=== PATIENT | male | born 1940 | race Caucasian/White ===

== ENCOUNTER → 2016-08-02 | Outpatient (CLI) | payer MEDICARE, BC ==
--- NOTE | 2016-08-02 12:24 | CT ---
EXAMINATION TYPE: CT chest wo con DATE OF EXAM: 08/02/2016 COMPARISON: Previous CT scan of the chest, abdomen and pelvis dated 11/12/2015 and a previous PET/CT d ated 12/20/2015. HISTORY: Shortness of breath, lobectomy and COPD CT DLP: 578 mGycm Automated exposure control for dose reduction was used. FINDINGS: There has been an interval right upper lobectomy. There are scattered granulomas within the left lung. No noncalcified nodules are seen. There are no suspicious axillary, mediastinal or hilar lymph nodes. There is no pleural or pericardial fluid. The heart is not enlarged. There are coronary artery calcifications. There is a small hiatal hernia. There is a stable 2.6 cm exophytic lesion arising in the lower pole of the right kidney and a stable 2.3 cm lesion in the anterior lower pole of the left kidney. These presumably represent cysts. Visual ized portions of the upper abdomen are otherwise unremarkable. There is hypertrophic spondylosis within the spine. No bony destructive lesion is seen. IMPRESSION: 1. POSTSURGICAL CHANGE. 2. NO EVIDENCE OF RECURRENT OR METASTATIC NEOPLASM. 3. SMALL HIATAL HERNIA. 4. BILATERAL RENAL LESIONS, LIKELY REPRESENTING CYSTS. THIS COULD BE CONFIRMED WITH ULTRASOUND. 5. DEGENERATIVE CHANGES WITHIN THE SPINE.
== END | disposition home or self-care (01) ==
LOC: RADCTMAIN 11:51
PROVIDERS: ATTEND Internal Medicine
DX: R06.02 Shortness of breath (principal); R05 Cough; Z98.84 Bariatric surgery status
CPT/HCPCS: 71250

== ENCOUNTER → 2016-12-06 | Outpatient (CLI) | payer MEDICARE, BC ==
--- NOTE | 2016-12-06 08:44 | CT ---
EXAMINATION TYPE: CT ChestAbdPelvis wo con DATE OF EXAM: 12/06/2016 COMPARISON: CT chest 08/02/2016, CT chest abdomen pelvis 11/12/2015 HISTORY: Prostate cancer CT DLP: 1298 mGycm. Automated Exposure Control for Dose Reduction was Utilized. TECHNIQUE: CT scan of the thorax, abdomen and pelvis is performed without IV contrast. FINDINGS: Lack of intravenous contrast could compromise sensitivity. LUNGS: The lungs are grossly clear, there is no concerning parenchymal mass or nodule identified. In flammatory and postop changes show similar appearance to prior exam within the right lung. There is n o pleural effusion or pneumothorax seen. The tracheobronchial tree is patent. Calcified pleural plaq ue left upper lobe is stable. MEDIASTINUM: There are no greater than 1 cm hilar or mediastinal lymph nodes. No pericardial effusi on is seen. There are coronary artery calcifications present. OTHER: No additional significant abnormality is seen. LIVER/GB: No significant abnormality is appreciated. PANCREAS: No significant abnormality is seen. SPLEEN: No significant abnormality is seen. ADRENALS: No significant abnormality is seen. KIDNEYS: No significant interval change, cystic foci are associated with the kidneys. BOWEL: No sign ificant abnormality is seen. GENITAL ORGANS: No gross abnormality seen. Right inguinal hernia contains fat. LYMPH NODES: No greater than 1cm abdominal or pelvic lymph nodes are appreciated. OSSEOUS STRUCTURES: Degenerative disc changes present in the visualized spine. OTHER: Abdominal aorta measures approximately 3.8 cm in greatest dimension proximal to the bifurcatio n. Atheromatous changes are present within the abdominal aorta. IMPRESSION: Postop changes. Noncontrast exam. Abdominal aortic aneurysm is stable. Additional finding s above.
== END | disposition home or self-care (01) ==
LOC: RADCTMAIN 07:20
PROVIDERS: ATTEND Family Medicine
DX: Z08 Encounter for follow-up examination after completed treatment for malignant neoplasm (principal); I71.4 Abdominal aortic aneurysm, without rupture; Z85.46 Personal history of malignant neoplasm of prostate; Z98.890 Other specified postprocedural states
CPT/HCPCS: 71250; 74176

== ENCOUNTER → 2017-02-15 | Outpatient (CLI) | payer MEDICARE, BC ==
[~2017-02-15] MED LIST: DENOSUMAB 60 MG/ML 1 ML SYRINGE SQ ONE
[2017-02-15 10:07] VITALS: BP 118/58; PULSE 69; RESP 16; TEMP 97.9
== END | disposition home or self-care (01) ==
LOC: PROCWHC3 09:13
PROVIDERS: ATTEND Family Medicine
DX: M81.0 Age-related osteoporosis without current pathological fracture (principal); Z85.46 Personal history of malignant neoplasm of prostate
CPT/HCPCS: 96372; J0897

== ENCOUNTER 2019-03-19 12:18 | Emergency (ER) | payer MEDICARE ==
[2019-03-19] MEDS ORDERED: SODIUM CHLORIDE 0.9% 500 ML 500 ML IV STA (12:58)
--- NOTE | 2019-03-19 13:02 | ED ---
General Adult HPI - General Chief complaint: Shortness of Breath Stated complaint: SOB, Tachycardia Source: patient, RN notes reviewed, old records reviewed Mode of arrival: ambulatory Limitations: no limitations - History of Present Illness Initial comments: This is an 78-year-old male who presents to the emergency department complaining of shortness of breath. Patient states been ongoing a week. Patient states he has had a cough with increased sputum production. Patient denies any chest pain or palpitations. Patient denies any fever chills. Patient states he has a we ight loss of about 14 pounds over the last 6 months or so. Patient states that could be because his and she was still cooked. Patient states he does not do much cocaine he does not eat enough. Patient denies any abdominal pain patient denies nausea vomiting diarrhea. Patient denies any lightheadedness dizziness. Patient denies any numbness or weakness. Patient denies any swelling to the legs or calf tenderness. - Related Data Home Medications Medication Instructions Recorded Confirmed Atorvastatin [Lipitor] 20 mg PO DAILY 06/04/15 02/15/17 Multivitamins, Thera [Multivitamin] 1 tab PO DAILY 06/04/15 02/15/17 Potassium Chloride ER [K-Dur 20] 20 mg PO DAILY 06/04/15 02/15/17 Bicalutamide [Casodex] 50 mg PO DAILY 06/09/15 02/15/17 Calcium Carbonate [Calcium] 600 mg PO DAILY 02/15/17 02/15/17 Escitalopram [Lexapro] 10 mg PO DAILY 02/15/17 02/15/17 Lisinopril [Zestril] 2.5 mg PO DAILY 02/15/17 02/15/17 Previous Rx's Medication Instructions Recorded Albuterol Inhaler [Ventolin Hfa 1 - 2 puff INHALATION Q6HR PRN #2 03/19/19 Inhaler] puff Azithromycin [Zithromax Tri-Neno] 500 mg PO DAILY #3 tab 03/19/19 Allergies Allergy/AdvReac Type Severity Reaction Status Date / Time No Known Allergies Allergy Verified 03/19/19 12:43 Review of Systems ROS Statement: Those systems with pertinent positive or pertinent negative responses have been documented in the HPI. ROS Other: All systems not noted in ROS Statement are negative. Past Medical History Past Medical History: Cancer, COPD, Diabetes Mellitus, Hyperlipidemia, Prostate Disorder, Skin Disorder Additional Past Medical History / Comment(s): Prostate cancer, bladder cancer History of Any Multi-Drug Resistant Organisms: None Reported Past Surgical History: Appendectomy Additional Past Surgical History / Comment(s): skin biopsy, appendicitis, lower back surgery, bladder tumor removed, Had radiation for prostate CA Past Anesthesia/Blood Transfusion Reactions: Previous Problems w/ Anesthesia Additional Past Anesthesia/Blood Transfusion Reaction / Comment(s): post anesthesia blood pressure drop. No blood transfusions. Past Psychological History: Anxiety Smoking Status: Former smoker Past Alcohol Use History: None Reported Past Drug Use History: None Reported - Past Family History Father Family Medical History: Congestive Heart Failure (CHF) General Exam - General Exam Comments Initial Comments: GENERAL: Patient is well-developed and well-nourished. Patient is nontoxic and well- hydrated and is in no acute distress. ENT: Neck is soft and supple. No significant lymphadenopathy is noted. Oropharynx is clear. Moist mucous membranes. Neck has full range of motion without eliciting any pain. EYES: The sclera were anicteric and conjunctiva were pink and moist. Extraocular movements were intact and pupils were equal round and reactive to light. Eyelids were unremarkable. PULMONARY: Unlabored respirations. Good breath sounds bilaterally. No audible rales rhonchi or wheezing was noted. CARDIOVASCULAR: There is a regular rate and rhythm without any murmurs gallops or rubs. ABDOMEN: Soft and nontender with normal bowel sounds. No palpable organomegaly was noted. There is no palpable pulsatile mass. SKIN: Skin is clear with no lesions or rashes and otherwise unremarkable. NEUROLOGIC: Patient is alert and oriented x3. Cranial nerves II through XII are grossly intact. Motor and sensory are also intact. Normal speech, volume and content. Symmetrical smile. MUSCULOSKELETAL: Normal extremities with adequate strength and full range of motion. No lower extremity swelling or edema. No calf tenderness. LYMPHATICS: No significant lymphadenopathy is noted PSYCHIATRIC: Normal psychiatric evaluation. Limitations: no limitations Course Vital Signs 03/19/19 03/19/19 12:41 13:06 Temperature 97.8 F Pulse Rate 104 H Respiratory 18 18 Rate Blood Pressure 135/82 O2 Sat by Pulse 96 Oximetry Medical Decision Making - Medical Decision Making EKG shows a sinus rhythm with occasional PVC at 96 bpm NV interval 284 QRS is un maria e 22 QT interval 380 QTC is 490. Patient's EKG shows no ST segment elevation or depression. Chest x-ray showed no acute normalities. CT of the chest showed no PE in no acute abnormality. I will back and he spoke with the patient he stated he felt much improved. I told the patient we will be sending him home with albuterol and a steroid just to be sure since his symptoms been so prolonged. Patient states to follow-up with his primary medical care doctor and return here if there are any new or worsening symptoms - Lab Data Result diagrams: 03/19/19 12:45 03/19/19 12:45 Lab Results 03/19/19 03/19/19 03/19/19 Range/Units 12:45 12:45 12:45 WBC 10.0 (3.8-10.6) k/uL RBC 4.34 (4.30-5.90) m/uL Hgb 13.4 (13.0-17.5) gm/dL Hct 38.4 L (39.0-53.0) % MCV 88.3 (80.0-100.0) fL MCH 30.8 (25.0-35.0) pg MCHC 34.8 (31.0-37.0) g/dL RDW 12.5 (11.5-15.5) % Plt Count 297 (150-450) k/uL Neutrophils % 70 % Lymphocytes % 16 % Monocytes % 8 % Eosinophils % 4 % Basophils % 1 % Neutrophils # 7.0 (1.3-7.7) k/uL Lymphocytes # 1.6 (1.0-4.8) k/uL Monocytes # 0.8 (0-1.0) k/uL Eosinophils # 0.4 (0-0.7) k/uL Basophils # 0.1 (0-0.2) k/uL PT 10.4 (9.0-12.0) sec INR 1.0 (<1.2) APTT 21.0 L (22.0-30.0) sec D-Dimer 1.29 H (<0.60) mg/L FEU Sodium 139 (137-145) mmol/L Potassium 4.2 (3.5-5.1) mmol/L Chloride 105 (98-107) mmol/L Carbon Dioxide 25 (22-30) mmol/L Anion Gap 9 mmol/L BUN 25 H (9-20) mg/dL Creatinine 1.05 (0.66-1.25) mg/dL Est GFR (CKD-EPI)AfAm 78 (>60 ml/min/1.73 sqM) Est GFR (CKD-EPI)NonAf 67 (>60 ml/min/1.73 sqM) Glucose 143 H (74-99) mg/dL Plasma Lactic Acid Salvador (0.7-2.0) mmol/L Calcium 9.8 (8.4-10.2) mg/dL Magnesium 1.8 (1.6-2.3) mg/dL Total Bilirubin 0.8 (0.2-1.3) mg/dL AST 25 (17-59) U/L ALT 16 (4-49) U/L Alkaline Phosphatase 118 (38-126) U/L Troponin I (0.000-0.034) ng/mL NT-Pro-B Natriuret Pep pg/mL Total Protein 7.2 (6.3-8.2) g/dL Albumin 4.4 (3.5-5.0) g/dL 03/19/19 03/19/19 03/19/19 Range/Units 12:45 12:45 12:45 WBC (3.8-10.6) k/uL RBC (4.30-5.90) m/uL Hgb (13.0-17.5) gm/dL Hct (39.0-53.0) % MCV (80.0-100.0) fL MCH (25.0-35.0) pg MCHC (31.0-37.0) g/dL RDW (11.5-15.5) % Plt Count (150-450) k/uL Neutrophils % % Lymphocytes % % Monocytes % % Eosinophils % % Basophils % % Neutrophils # (1.3-7.7) k/uL Lymphocytes # (1.0-4.8) k/uL Monocytes # (0-1.0) k/uL Eosinophils # (0-0.7) k/uL Basophils # (0-0.2) k/uL PT (9.0-12.0) sec INR (<1.2) APTT (22.0-30.0) sec D-Dimer (<0.60) mg/L FEU Sodium (137-145) mmol/L Potassium (3.5-5.1) mmol/L Chloride (98-107) mmol/L Carbon Dioxide (22-30) mmol/L Anion Gap mmol/L BUN (9-20) mg/dL Creatinine (0.66-1.25) mg/dL Est GFR (CKD-EPI)AfAm (>60 ml/min/1.73 sqM) Est GFR (CKD-EPI)NonAf (>60 ml/min/1.73 sqM) Glucose (74-99) mg/dL Plasma Lactic Acid Salvador 1.5 (0.7-2.0) mmol/L Calcium (8.4-10.2) mg/dL Magnesium (1.6-2.3) mg/dL Total Bilirubin (0.2-1.3) mg/dL AST (17-59) U/L ALT (4-49) U/L Alkaline Phosphatase (38-126) U/L Troponin I <0.012 (0.000-0.034) ng/mL NT-Pro-B Natriuret Pep 172 pg/mL Total Protein (6.3-8.2) g/dL Albumin (3.5-5.0) g/dL Disposition Clinical Impression: Bronchitis, acute Disposition: HOME SELF-CARE Instructions (If sedation given, give patient instructions): Acute Bronchitis (ED) Prescriptions: Albuterol Inhaler [Ventolin Hfa Inhaler] 1 - 2 puff INHALATION Q6HR PRN #2 puff PRN Reason: Difficulty breathing Azithromycin [Zithromax Tri-Neno] 500 mg PO DAILY #3 tab Is patient prescribed a controlled substance at d/c from ED?: No Referrals: Lisa Dodd DO [Primary Care Provider] - 1-2 days
[2019-03-19 13:20] LABS: Albumin 4.4 g/dL (3.5-5.0); Calcium 9.8 mg/dL (8.4-10.2); Magnesium 1.8 mg/dL (1.6-2.3); Potassium 4.2 mmol/L (3.5-5.1); Total Bilirubin 0.8 mg/dL (0.2-1.3); Total Protein 7.2 g/dL (6.3-8.2)
[2019-03-19 13:37] LABS: Basophils # (A) 0.1 k/uL (0-0.2); Basophils % (A) 1 %; Eosinophils # (A) 0.4 k/uL (0-0.7); Eosinophils % (A) 4 %; HCT 38.4 % (39.0-53.0); HGB 13.4 gm/dL (13.0-17.5); Lymphocytes # (A) 1.6 k/uL (1.0-4.8); Lymphocytes % (A) 16 %; MCH 30.8 pg (25.0-35.0); MCHC 34.8 g/dL (31.0-37.0); MCV 88.3 fL (80.0-100.0); Mean Platelet Volume 7.2; Monocytes # (A) 0.8 k/uL (0-1.0); Monocytes % (A) 8 %; Neutrophils % (A) 70 %; Platelet Count 297 k/uL (150-450); RBC 4.34 m/uL (4.30-5.90); RDW 12.5 % (11.5-15.5)
[2019-03-19 13:40] LABS: Prothrombin Time 10.4 sec (9.0-12.0)
[2019-03-19 13:46] LABS: D-Dimer 1.29 mg/L FEU (<0.60)
--- NOTE | 2019-03-19 14:11 | XR ---
EXAMINATION TYPE: XR chest 2V DATE OF EXAM: 03/19/2019 COMPARISON: CT December 06, 2016 HISTORY: Shortness of breath and tachycardia. TECHNIQUE: Frontal and lateral views of the chest are obtained. FINDINGS: There is chronic parenchymal change bilaterally without suspicious focal air space opacity , pleural effusion, or pneumothorax seen. The cardiac silhouette size is upper limits of normal. T he osseous structures remain demineralized. IMPRESSION: Chronic changes without acute pulmonary process.
--- NOTE | 2019-03-19 15:42 | CT ---
EXAMINATION TYPE: CT chest angio for PE DATE OF EXAM: 03/19/2019 COMPARISON: CT December 06, 2016 HISTORY: SOB, Tachycardia CT DLP: 299.5 mGycm. Automated Exposure Control for Dose Reduction was Utilized. CONTRAST: CTA scan of the thorax is performed without and with IV Contrast, patient injected with 100 ml mL of Isovue 370, pulmonary embolism protocol. MIP Images are created on CT scanner and reviewed. FINDINGS: LUNGS: Background moderate underlying emphysematous change with mild/moderate parenchymal fibrosis la teral right lung base redemonstrated. No suspicious new focal consolidation or groundglass opacity. N o pleural effusion or pneumothorax is seen bilaterally. Some right-sided volume loss with slightly el evated right hemidiaphragm again seen. MEDIASTINUM: There is satisfactory enhancement of the pulmonary artery and its branches, there is no CT evidence for pulmonary embolism. There are no new greater than 1 cm hilar or mediastinal lymph n odes. No cardiomegaly or pericardial effusion is seen. Coronary artery calcification is again seen which is noted marker for underlying coronary artery disease. OTHER: Asymmetric right-sided gynecomastia axial image 6 redemonstrated. Multilevel spurring in the s pine again seen. IMPRESSION: 1. No CT evidence for acute pulmonary embolism. Moderate emphysematous and mild to moderate parenchym al fibrotic changes without new suspicious acute pulmonary process.
[2019-03-19 16:29] VITALS: BP 133/76; PULSE 77; RESP 16; TEMP 98.1
== END 2019-03-19 16:43 | disposition home or self-care (01) ==
LOC: EC 12:18
DX: J20.9 Acute bronchitis, unspecified (principal); J44.0 Chronic obstructive pulmonary disease with (acute) lower respiratory infection; I49.3 Ventricular premature depolarization; E11.9 Type 2 diabetes mellitus without complications; E78.5 Hyperlipidemia, unspecified; F41.9 Anxiety disorder, unspecified; Z79.899 Other long term (current) drug therapy; Z87.891 Personal history of nicotine dependence; Z85.46 Personal history of malignant neoplasm of prostate
CPT/HCPCS: 99285; 36415; 93005; 85379; 83880; 80053; 83605; 83735; 84484; 85025; 85610; 85730; 87040; 71046; 71275; Q9967

== ENCOUNTER → 2020-04-03 | Outpatient (CLI) | payer MEDICARE ==
--- NOTE | 2020-04-03 17:04 | CT ---
EXAMINATION TYPE: CT angio chest DATE OF EXAM: 04/03/2020 COMPARISON: 03/19/2019 HISTORY: CT DLP: mGycm Automated exposure control for dose reduction was used. CONTRAST: Performed , patient injected with mL of . The contrast was Isovue 162 mL. There are 3-D post processed images. Images obtained from the thoracic inlet to the diaphragm with IV contrast. There is some patchy reticular density in both lung malave consistent with mild scarring and subsegme ntal atelectasis. There is no suspicious pulmonary mass. There is some mild pleural thickening and ca lcification in the medial aspect right upper lobe. There are no hilar masses. There is no mediastinal adenopathy. Thoracic aorta appears intact. There is no aneurysm or dissection. The ascending aorta m easures 3.3 cm. There is normal contrast opacification of the pulmonary arteries. There are no filling defects. There is some spurring in the thoracic spine. There is no compression fracture. Upper abdominal soft tissues are intact. There are multiple bilateral renal cortical cysts that measure up to 3.2 cm. IMPRESSION: No evidence of pulmonary embolism. Patchy scarring and subsegmental atelectasis in both lungs. There is some pleural calcification and t hickening medial aspect right upper lobe that is improved compared to old exam. No suspicious pulmona ry mass.
--- NOTE | 2020-04-03 17:10 | CT ---
EXAMINATION TYPE: CT angio chest This duplicate report for the exam performed with 2 different accession numbers. DATE OF EXAM: 04/03/2020 COMPARISON: 03/19/2019 HISTORY: CT DLP: mGycm Automated exposure control for dose reduction was used. CONTRAST: Performed , patient injected with mL of . The contrast was Isovue 162 mL. There are 3-D post processed images. Images obtained from the thoracic inlet to the diaphragm with IV contrast. There is some patchy reticular density in both lung malave consistent with mild scarring and subsegme ntal atelectasis. There is no suspicious pulmonary mass. There is some mild pleural thickening and ca lcification in the medial aspect right upper lobe. There are no hilar masses. There is no mediastinal adenopathy. Thoracic aorta appears intact. There is no aneurysm or dissection. The ascending aorta m easures 3.3 cm. There is normal contrast opacification of the pulmonary arteries. There are no filling defects. There is some spurring in the thoracic spine. There is no compression fracture. Upper abdominal soft tissues are intact. There are multiple bilateral renal cortical cysts that measure up to 3.2 cm. IMPRESSION: No evidence of pulmonary embolism. Patchy scarring and subsegmental atelectasis in both lungs. There is some pleural calcification and t hickening medial aspect right upper lobe that is improved compared to old exam. No suspicious pulmona ry mass.
== END | disposition home or self-care (01) ==
LOC: RADCTMAIN 15:07
PROVIDERS: ATTEND Family Medicine
DX: J98.11 Atelectasis (principal); J98.4 Other disorders of lung; R09.02 Hypoxemia; R00.0 Tachycardia, unspecified; Z86.16 Personal history of COVID-19
CPT/HCPCS: 82565; 84520; 71275; 36415; Q9967

== ENCOUNTER → 2021-06-15 | Outpatient (CLI) | payer MEDICARE ==
--- NOTE | 2021-06-15 13:15 | CT ---
EXAMINATION TYPE: CT abdomen pelvis w con DATE OF EXAM: 06/15/2021 COMPARISON: CT dated 12/06/2016 HISTORY: Prostate cancer CT DLP: 456.0 mGycm Automated exposure control for dose reduction was used. TECHNIQUE: Helical acquisition of images was performed from the lung bases through the pelvis. CONTRAST: Performed without Oral Contrast and with IV Contrast, patient injected with 80 mL of Isovue 300. FINDINGS: LUNG BASES: Mild right basal pulmonary fibrotic changes. Cardiomegaly and coronary arterial atheroscl erotic calcifications. LIVER/GB: No definite hepatic focal lesion. Suspected adenomyomatosis at the gallbladder fundus, for correlation with ultrasound results. PANCREAS: Atrophic with fatty infiltration. SPLEEN: Minimal subcapsular fluid. No splenic focal lesion. ADRENALS: No significant abnormality is seen. KIDNEYS: Multiple variable sized bilateral renal cysts without gross suspicious features, otherwise u nremarkable kidneys. FREE AIR: No free air is visualized. RETROPERITONEAL ADENOPATHY: No pathologically enlarged retroperitoneal lymph nodes. REPRODUCTIVE ORGANS: No prostatic enlargement. URINARY BLADDER: Nondistended and suboptimally assessed. PELVIC ADENOPATHY: No pathologically enlarged lymph nodes. OSSEOUS STRUCTURES: Tiny sclerotic foci at the posterior aspects of the iliac bones, slightly more p rominent compared to the previous CT scan on the right side, nonspecific. Recommend correlation with bone scan results. Diffuse osteopenia. Anterolisthesis of L3 over L4 with retrolisthesis of L4 over L 5. BOWEL: Unremarkable nondistended stomach, duodenum and small bowel. Fecal loading of the colon and r ectum suggestive of constipation. OTHER: Atherosclerotic arterial calcification. Stenosis of the origin of the celiac trunk yet patent distally. Infrarenal abdominal aortic aneurysm measuring 4 cm compared to 3.8 cm previously. No sizab le ascites. Small right fat-containing inguinal hernia. IMPRESSION: 1. Questionable slightly more prominent sclerotic foci at the posterior aspect of the right iliac bon e, nonspecific. Recommend correlation with bone scan results and PSA level. 2. Otherwise no evidence of metastatic disease seen in the abdomen or the pelvis. 3. Enlarging infrarenal abdominal aortic aneurysm with other incidental findings as detailed above.
--- NOTE | 2021-06-15 14:18 | NM ---
EXAMINATION TYPE: NM bone scan whole body DATE OF EXAM: 06/15/2021 COMPARISON: CT abdomen pelvis same date HISTORY: Vonda a cancer Delayed whole-body scanning was performed following the injection of 22.9 mCi Tc 99m MDP. Images acq uired 3 hours post injection. FINDINGS: There are some rib deformities noted on CT along anterior aspect of the lower right ribs and lower le ft ribs, some corresponding uptake is noted which is thought likely to be posttraumatic, possibly rem ote, correlate. Bony bridge is noted anteriorly on the left between the sixth and seventh rib and javier wing some mild uptake Soft tissue uptake is normal. Mild uptake in the lumbar spine is likely degener ative. No abnormal uptake within the pelvis to correlate with findings described on CT. IMPRESSION: There are areas of rib uptake as described, correlate for history of trauma.
== END | disposition home or self-care (01) ==
LOC: RADNMMAIN 09:43
PROVIDERS: ATTEND Urology
DX: C61 Malignant neoplasm of prostate (principal); I71.4 Abdominal aortic aneurysm, without rupture
CPT/HCPCS: 82565; 84520; 74177; 36415; 78306; A9503; Q9967

== ENCOUNTER → 2021-07-23 | Outpatient (CLI) | payer MEDICARE ==
[2021-07-23 23:33] LABS: African American GFR (CKD) 66.4 (60.0-200.0); Albumin 3.8 g/dL (3.8-4.9); Albumin/Globulin Ratio 2.08 (1.60-3.17); Anion Gap 6.9 mmol/L (10.00-18.00); BUN/Creat Ratio 20.85 Ratio (12.00-20.00); Blood Urea Nitrogen 24.4 mg/dL (9.0-27.0); Calcium 8.9 mg/dL (8.7-10.3); Carbon Dioxide 27.4 mmol/L (20.0-27.5); Globulin 1.8 g/dL (1.6-3.3); Non-African American GFR(CKD) 57.3 (60.0-200.0); Potassium 4.6 mmol/L (3.5-5.5); Prostate Specific Antigen 36.5 ng/mL (0.00-6.50); Total Bilirubin 0.2 mg/dL (0.30-1.20); Total Protein 5.6 g/dL (6.2-8.2)
== END | disposition home or self-care (01) ==
LOC: LABWHC1 17:36
PROVIDERS: ATTEND Urology
DX: C61 Malignant neoplasm of prostate (principal)
CPT/HCPCS: 36415; 80053; 84153

== ENCOUNTER → 2022-02-12 | Outpatient (CLI) | payer MEDICARE ==
[2022-02-12 11:04] LABS: African American GFR (CKD) >90 (>60 ml/min/1.73 sqM); Blood Urea Nitrogen 21 mg/dL (9-20); Non-African American GFR(CKD) 79 (>60 ml/min/1.73 sqM)
--- NOTE | 2022-02-12 12:39 | CT ---
EXAMINATION TYPE: CT ChestAbdPelvis w con DATE OF EXAM: 02/12/2022 COMPARISON: CT abdomen and pelvis on 06/15/2021 and CTA chest on 04/03/2020. HISTORY: Prostate Cancer CT DLP: 544.0 mGycm Automated exposure control for dose reduction was used. CONTRAST: CT scan of the chest, abdomen and pelvis is performed without Oral Contrast and with IV Contrast, pat ient injected with 80 mL of Isovue 300. FINDINGS: LUNGS: There's been a prior right upper lobectomy. Some scattered subpleural areas of reticulation ar e likely chronic and unchanged. No new or suspicious pulmonary nodules are otherwise seen. There is n o focal area of consolidation. There are a few calcified granulomas seen within the left lung. CARDIOVASCULAR: There is mild vascular calcification within the thoracic aorta without evidence of an eurysmal dilation or dissection. There are moderate severe diffuse coronary artery calcifications. MEDIASTINUM: There are no greater than 1 cm hilar or mediastinal lymph nodes. No pericardial effusi on is seen. 2.1 cm right thyroid nodule is unchanged. OTHER: No additional significant abnormality is seen. LIVER/GB: No significant abnormality is appreciated. PANCREAS: No significant abnormality is seen. SPLEEN: No significant abnormality is seen. ADRENALS: No significant abnormality is seen. KIDNEYS: Few scattered bilateral renal cysts subcentimeter hypodensities are too small to fully ole cterize and are unchanged. No suspicious renal lesions are otherwise seen. BOWEL: No significant abnormality is seen. Aorta/IVC: There is a 4.1 cm abdominal aortic aneurysm in infrarenal location with some eccentric int raluminal thrombus. There is significant vascular calcification otherwise seen throughout the abdomin al aorta and iliac vessels. No evidence of dissection is seen. IVC is normal in caliber. REPRODUCTIVE ORGANS: No gross abnormality seen. LYMPH NODES: No greater than 1 cm abdominal or pelvic lymph nodes are appreciated. OSSEOUS STRUCTURES: No significant abnormality is seen. OTHER: IMPRESSION: 1. No definitive evidence of metastatic disease within the chest, abdomen and pelvis. 2. Additional chronic and incidental findings described above.
== END | disposition home or self-care (01) ==
LOC: RADCTMAIN 10:22
PROVIDERS: ATTEND Urology
DX: C61 Malignant neoplasm of prostate (principal)
CPT/HCPCS: 82565; 84520; 71260; 74177; 36415; Q9967

== ENCOUNTER → 2022-03-09 | Outpatient (CLI) | payer MEDICARE ==
--- NOTE | 2022-03-09 14:42 | NM ---
EXAMINATION TYPE: NM bone scan whole body DATE OF EXAM: 03/09/2022 COMPARISON: Nuclear medicine bone scan 06/15/2021 HISTORY: Prostate cancer Delayed whole-body scanning was performed following the injection of 22.6 mCi Tc 99m MDP. Images acq uired for hours post injection. FINDINGS: Increase in multiple focal radiotracer uptake throughout the osseous structures including the bilater al shoulders, cervical spine, thoracic spine, lumbar spine, bilateral ribs, bilateral proximal femurs , sternum, right hemisacrum, right mid tibia, central skull. Suggested right hydronephrosis. IMPRESSION: 1. Multiple focal radiotracer uptake demonstrated throughout the osseous structures as described abo ve consistent with metastatic disease progression. 2. Suggested right hydronephrosis.
== END | disposition home or self-care (01) ==
LOC: RADNMMAIN 10:14
PROVIDERS: ATTEND Urology
DX: C61 Malignant neoplasm of prostate (principal)
CPT/HCPCS: 78306; A9503